=== PATIENT | male | born 1960 | race Caucasian/White ===

== ENCOUNTER 2018-12-19 06:47 | Emergency (ER) | payer OTHER ==
[2018-12-19 06:51] VITALS: BP 162/109
[2018-12-19] MEDS ORDERED: PROPARACAINE 0.5% 15 ML OPHT DROP ONE (06:59)
--- NOTE | 2018-12-19 07:03 | EDPHY ---
H & P Time Seen by Provider: 12/19/18 06:56 HPI/ROS: CHIEF COMPLAINT: Foreign body in eye HISTORY OF PRESENT ILLNESS: The patient is a 58-year-old male who presents emergency department feeling as though he has a foreign body in his left eye. He was snow she yesterday at around 2:00 p.m.. He struck a branch with his head. [place], snow and pieces of the branch fell down getting into his left eye. He tried to flush his eye but continues to feel a foreign body sensation superiorly. He denies visual change. He has had no nausea vomiting. No fever. No other complaints. REVIEW OF SYSTEMS: Negative Past Medical/Surgical History: Pass surgical history includes vasectomy, hemorrhoidectomy Social history: Patient does not smoke Smoking Status: Current every day smoker Physical Exam: Vitals noted GENERAL: Well-appearing, in no acute distress, alert. Visual acuity: Noted. Eyelids: Slightly swollen left eyelid. Mildly red. No warmth. Everted for exam. No visible foreign body. Conjunctiva and sclera: Injected. No subconjunctival hemorrhage. No exudate. Corneas: Normal inspection. Examined with fluorescein dye: No uptake, abrasion, or ulcer. EOMs: Intact. Pupils: PERRL, normal accommodation. Anterior chambers: Normal inspection. No hyphema. No cells or flare. Posterior segments: Normal funduscopic exam Left eye: Using an icare measuring device, interocular pressure was 17, 18, 17 Constitutional: Initial Vital Signs Temperature (C) 36.7 C 12/19/18 06:47 Heart Rate 74 12/19/18 06:47 Respiratory Rate 18 12/19/18 06:47 Blood Pressure 162/109 H 12/19/18 06:47 O2 Sat (%) 95 12/19/18 06:47 O2 Delivery Mode Room Air Allergies/Adverse Reactions: No Known Allergies Allergy (Verified 12/19/18 06:49) Home Medications: Medication Instructions Recorded Hydrocodone/APAP 5/325 [[place] 1 - 2 tab PO Q4 #13 tab 12/19/18 5/325 (RX)] Tobramycin/Dexameth [Tobradex opht 1 - 2 drops LEFTEYE Q4 #10 opht.btl 12/19/18 drops (*)] Medical Decision Making ED Course/Re-evaluation: In the emergency department I discussed possible etiologies with the patient. I answered all his questions. Proparacaine drops were placed. Patient's eye was irrigated with 500 mL of normal saline. I was unable to visualize a foreign body on exam. Intra-ocular pressure was unremarkable. I discussed the case with Ophthalmology on-call, Dr. Melton. He recommended the patient be started on TobraDex. He will see the patient in his office tomorrow for symptoms worsen. I discussed the plan with the patient. He is given warnings prior to leaving. He will return with worsening symptoms. Differential Diagnosis: My differential includes but is not limited to foreign body, corneal abrasion, corneal ulceration, iritis, glaucoma Departure - Departure Disposition: Home, Routine, Self-Care Clinical Impression: Pain, eye, left Condition: Good Instructions: Eye Pain (ED) Additional Instructions: Take your drops as prescribed. If you do not feel significantly better tomorrow call Dr. Melton 1st thing tomorrow morning to make an appointment to be seen. If you worsened throughout the day return to the emergency department for repeat evaluation. Referrals: Gareth Melton MD [Medical Doctor] - 1-2 days without fail Prescriptions: Hydrocodone/APAP 5/325 [[place] 5/325 (RX)] 1 - 2 tab PO Q4 #13 tab Tobramycin/Dexameth [Tobradex opht drops (*)] 1 - 2 drops LEFTEYE Q4 #10 opht.btl
[2018-12-19] MEDS ORDERED: FLUORESCEIN SODIUM 1 MG STRIP OP ONE (07:30)
== END 2018-12-19 08:04 | disposition home or self-care (01) ==
DX: S05.02XA Injury of conjunctiva and corneal abrasion without foreign body, left eye, initial encounter (principal); F17.200 Nicotine dependence, unspecified, uncomplicated; W22.8XXA Striking against or struck by other objects, initial encounter